=== PATIENT | female | born 1945 | race Caucasian/White ===

== ENCOUNTER 2019-03-30 07:02 | Day surgery (SDC) | payer MEDICARE ==
[~2019-03-30] VITALS: Ht 154.9 cm; Wt 87.1 kg
[2019-03-30] MEDS ORDERED: IODIXANOL 320MG/ML 100 ML BOTTLE IV ONE (07:34)
[2019-03-30] MEDS ORDERED: LIDOCAINE HCL 1% 20ML VIAL (Pyxis) INJ ONE (07:34)
[2019-03-30] MEDS ORDERED: DIPHENHYDRAMINE 50MG/ML VIAL ONE (08:01)
[2019-03-30] MEDS ORDERED: ASPIRIN/SOD BICARB/CITRIC ACID 324MG TAB EFF ONE (08:02)
[2019-03-30] MEDS ORDERED: FAMOTIDINE 20MG/2ML VIAL IV ONE (08:02)
[2019-03-30] MEDS ORDERED: HYDROCORTISONE SOD SUCCINATE 250 MG/2 ML VIAL ONE (08:02)
[2019-03-30] MEDS ORDERED: POTA10TA11 MT (08:18)
[2019-03-30] MEDS ORDERED: SYN150 MT (08:18)
[2019-03-30] MEDS ORDERED: GLIM2TAB2 MT (08:18)
[2019-03-30] MEDS ORDERED: HYDR12.54 MT (08:18)
[2019-03-30] MEDS ORDERED: ASPI-1158 MT (08:18)
[2019-03-30] MEDS ORDERED: TOPXL5 MT (08:18)
[2019-03-30] MEDS ORDERED: ISOS60TA4 MT (08:18)
[2019-03-30] MEDS ORDERED: INSLIS SUBCUT (08:18)
[2019-03-30] MEDS ORDERED: PRAV40TA58 MT (08:18)
[2019-03-30] MEDS ORDERED: FERR325T6 MT (08:18)
[2019-03-30] MEDS ORDERED: LEVVL SQ (08:18)
[2019-03-30] MEDS ORDERED: MICAR4 MT (08:18)
[2019-03-30] MEDS ORDERED: CLON0.1T MT (08:18)
[2019-03-30] MEDS ORDERED: MIDAZOLAM HCL 2 MG/2 ML VIAL ONE (08:28)
[2019-03-30] MEDS ORDERED: FENTANYL CITRATE/PF 50MCG/ML 2ML VIAL ONE (08:29)
[2019-03-30] MEDS ORDERED: HYDRALAZINE 20MG/ML VIAL ONE (08:39)
[2019-03-30] MEDS ORDERED: NITROGLYCERIN 0.4MG TABLET SL SL ONE (08:40)
[2019-03-30] MEDS ORDERED: ACETAMINOPHEN 325MG TABLET PO PRN (09:30)
[2019-03-30] MEDS ORDERED: MORPHINE SULFATE 4 MG/ML CPJ (NOT FOR IM USE) IV PRN (09:30)
[2019-03-30] MEDS ORDERED: ATROPINE SULFATE 1MG/10ML SYR IV PRN (09:30)
[2019-03-30] MEDS ORDERED: ONDANSETRON HCL 4MG/2ML INJ IV PRN (09:30)
[2019-03-30] MEDS ORDERED: INSULIN REGULAR (HUMULIN R) 300UNITS/3ML SUBCUT NR (12:00)
[2019-03-30] MEDS ORDERED: NICARDIPINE 100MCG/ML 10ML VIAL (CATH LAB) IV ONE (13:33)
[2019-03-30] MEDS ORDERED: HEPARIN SODIUM 1,000 UNIT/1ML VIAL IV ONE (13:33)
[2019-03-30] MEDS ORDERED: NITROGLYCERIN 50MCG/ML 10ML VIAL (CATH LAB) IV ONE (13:33)
[2019-04-07] MEDS ORDERED: ASPI-1159 PO (15:05)
== END 2019-03-30 13:30 | disposition home or self-care (01) ==
LOC: CCL 07:02 → EDBD 07:02 → CCL 13:30
PROVIDERS: ATTEND Specialist
DX: I25.10 Atherosclerotic heart disease of native coronary artery without angina pectoris (principal); G47.33 Obstructive sleep apnea (adult) (pediatric); I10 Essential (primary) hypertension; E66.9 Obesity, unspecified; D50.9 Iron deficiency anemia, unspecified; E03.9 Hypothyroidism, unspecified; I73.9 Peripheral vascular disease, unspecified; E78.00 Pure hypercholesterolemia, unspecified; I25.2 Old myocardial infarction; Z79.4 Long term (current) use of insulin; Z79.899 Other long term (current) drug therapy; Z88.0 Allergy status to penicillin; Z88.8 Allergy status to other drugs, medicaments and biological substances; I65.29 Occlusion and stenosis of unspecified carotid artery; Z91.041 Radiographic dye allergy status; Z95.1 Presence of aortocoronary bypass graft; Z95.5 Presence of coronary angioplasty implant and graft
CPT/HCPCS: 82962; 93005; 93459; 99152; 99153; C1769; C1887; C1893; J0360; J1200; J1644; J1720; J2250; J3010; J3490; Q9967; J1815; G0500

== ENCOUNTER 2023-05-13 19:10 | Inpatient (IN) | payer MEDICARE ==
[~2023-05-13] VITALS: Ht 162.6 cm; Wt 74.8 kg
[~2023-05-13 19:10] MED LIST: ASPI-1497 PO; CLON0.1T MT; CLOP-31 MT; GLIM2TAB30 MT; HYDR12.54 MT; INSLIS SUBCUT; ISOS60TA76 MT; LEVVL SQ; MICAR4 MT; PARO-150 MT; PITA4TAB2 MT; POTA-185 MT; PRAV40TA58 MT; SYN150 MT; TOPXL5 MT
[2023-05-13 20:00] VITALS: BP 121/52; PULSE 79; RESP 17; TEMP 97.4
[2023-05-13] MEDS ORDERED: CLONIDINE 0.1MG TABLET PO PRN (20:30)
[2023-05-13] MEDS ORDERED: DEXTROSE 50% WATER 50ML SYRINGE IV PRN ×3 (20:30)
[2023-05-13 20:50] VITALS: BP 121/52; PULSE 79; RESP 17; TEMP 97.4
[2023-05-13] MEDS ORDERED: BLOOD SUGAR DIAGNOSTIC STRIP TEST SCH ×2 (21:00)
[2023-05-13] MEDS ORDERED: ALPR-340 PO (21:05)
[2023-05-13] MEDS ORDERED: TOLT4CAP27 PO (21:05)
[2023-05-13] MEDS ORDERED: LEVO137T32 PO (21:06)
[2023-05-13] MEDS ORDERED: METH1TAB33 PO (21:07)
[2023-05-13] MEDS ORDERED: TELM80TA8 PO (21:08)
[2023-05-13] MEDS ORDERED: PARO40TA75 PO (21:08)
[2023-05-13] MEDS ORDERED: PANT40SU PO (21:10)
[2023-05-13] MEDS ORDERED: ISOS120T13 PO (21:12)
[2023-05-13] MEDS ORDERED: BLOO-1065 HHN (21:31)
[2023-05-13] MEDS: BLOOD SUGAR DIAGNOSTIC STRIP TEST SCH (21:44)
[2023-05-13] MEDS ORDERED: INSU100I28 SQ ×2 (21:55)
[2023-05-13] MEDS ORDERED: INSU100I13 SQ (21:56)
[2023-05-13] MEDS: LEVETIRACETAM 250MG TABLET PO SCH (21:58)
[2023-05-13] MEDS: ATORVASTATIN CALCIUM 40MG TABLET PO SCH (21:58)
[2023-05-13] MEDS: INSULIN LISPRO 100 UNITS/ML SUBCUT SCH (21:59)
[2023-05-13 23:40] VITALS: RESP 19
[2023-05-14 06:12] LABS: BASOPHILS % 0.6 % (0.0-2.0); EOSINOPHILS % 3.4 % (0.0-5.0); HEMATOCRIT. 35.5 % (36.0-48.0); HEMOGLOBIN. 11.6 g/dL (12.0-16.0); LYMPHOCYTES % 20.6 % (20.0-50.0); MEAN CORPUSCULAR VOLUME 82.9 fL (81.0-99.0); MEAN PLATELET VOLUME 8.1 fl (7.4-10.4); MONOCYTES % 8.8 % (2.0-8.0); NEUTROPHILS % 66.6 % (40.0-76.0); PLATELET 290 x1000/uL (130-400); RED BLOOD CELL COUNT 4.29 mill/uL (4.2-5.4)
[2023-05-14] MEDS: BLOOD SUGAR DIAGNOSTIC STRIP TEST SCH ×4 (06:27→21:12)
[2023-05-14] MEDS: PANTOPRAZOLE 40MG DR TABLET PO SCH (06:28)
[2023-05-14] MEDS: LEVOTHYROXINE SODIUM 137MCG TABLET PO SCH (06:28)
[2023-05-14] MEDS: INSULIN LISPRO 100 UNITS/ML SUBCUT SCH ×7 (06:46→21:36)
[2023-05-14 06:56] LABS: CHLORIDE 101 mEq/L (98-107)
[2023-05-14 08:00] VITALS: BP 141/64; PULSE 71; RESP 18; TEMP 97.7
[2023-05-14 08:06] LABS: CLARITY URINE CLEAR (CLEAR); COLOR URINE YELLOW (YELLOW); KETONES URINE NEGATIVE (NEGATIVE); LEUKOCYTE ESTERASE URINE 1+ (NEGATIVE); NITRITE URINE NEGATIVE (NEGATIVE); OCCULT BLOOD URINE NEGATIVE (NEGATIVE); PH URINE 5.5 (4.5-8.0); PROTEIN URINE 1+ (NEGATIVE); SPECIFIC GRAVITY URINE 1.009 (1.005-1.030); UROBILINOGEN URINE 0.2 E.U./dL (0.2-1.0)
[2023-05-14] MEDS: METOPROLOL SUCCINATE 50MG ER TABLET PO SCH (09:30)
[2023-05-14] MEDS: AMLODIPINE 10MG TABLET PO SCH (09:30)
[2023-05-14] MEDS: ISOSORBIDE MONONITRATE 60MG TABLET SR 24HR PO SCH (09:30)
[2023-05-14] MEDS: LEVETIRACETAM 250MG TABLET PO SCH ×2 (09:32→21:14)
[2023-05-14] MEDS: DOCUSATE SODIUM 100MG CAPSULE PO SCH ×2 (09:33→17:02)
[2023-05-14] MEDS: SENNOSIDES 8.6MG TABLET PO SCH (09:33)
[2023-05-14] MEDS: CLOPIDOGREL 75MG TABLET PO SCH (09:33)
[2023-05-14] MEDS: PAROXETINE HCL 10MG TABLET PO SCH (09:33)
[2023-05-14] MEDS: CHOLECALCIFEROL (D3) 1000 UNIT TABLET PO SCH (09:35)
[2023-05-14] MEDS: ASPIRIN 81MG EC TABLET PO SCH (09:35)
[2023-05-14] MEDS: HEPARIN 5000 UNITS/ML VIAL SUBCUT SCH ×2 (09:46→21:14)
[2023-05-14] MEDS: INSULIN GLARGINE 100 UNITS/ML SUBCUT SCH (09:51)
[2023-05-14] MEDS ORDERED: INSULIN GLARGINE 100 UNITS/ML SUBCUT SCH (10:00)
[2023-05-14] MEDS: ACETAMINOPHEN 325MG TABLET PO PRN (14:34)
[2023-05-14 20:00] VITALS: BP 133/66; PULSE 68; RESP 18; TEMP 97.3
[2023-05-14] MEDS: ATORVASTATIN CALCIUM 40MG TABLET PO SCH (21:14)
[2023-05-15] MEDS: PANTOPRAZOLE 40MG DR TABLET PO SCH (06:13)
[2023-05-15] MEDS: BLOOD SUGAR DIAGNOSTIC STRIP TEST SCH ×4 (06:13→21:10)
[2023-05-15] MEDS: LEVOTHYROXINE SODIUM 137MCG TABLET PO SCH (06:16)
[2023-05-15] MEDS: INSULIN LISPRO 100 UNITS/ML SUBCUT SCH ×7 (06:20→21:10)
[2023-05-15 06:59] LABS: CHLORIDE 102 mEq/L (98-107)
[2023-05-15 07:02] LABS: BASOPHILS % 0.6 % (0.0-2.0); EOSINOPHILS % 3.1 % (0.0-5.0); HEMATOCRIT. 36.2 % (36.0-48.0); LYMPHOCYTES % 21.5 % (20.0-50.0); MEAN CORPUSCULAR HEMOGLOBIN 27.4 pg (28.0-32.0); MEAN CORPUSCULAR VOLUME 82.5 fL (81.0-99.0); MEAN PLATELET VOLUME 7.9 fl (7.4-10.4); MONOCYTES % 8.2 % (2.0-8.0); NEUTROPHILS % 66.6 % (40.0-76.0); PLATELET 302 x1000/uL (130-400); RED BLOOD CELL COUNT 4.39 mill/uL (4.2-5.4); RED CELL DISTRIBUTION WIDTH 18.6 % (11.6-14.6)
[2023-05-15 07:19] LABS: TOTAL IRON BINDING CAPACITY 255 ug/dL (250-450)
[2023-05-15 07:52] LABS: VITAMIN B12 SERUM 919 pg/mL (211-911)
[2023-05-15 08:00] VITALS: BP 161/66; PULSE 69; RESP 18; TEMP 97.2
[2023-05-15 08:22] LABS: FERRITIN 50 ng/mL (10-291)
[2023-05-15] MEDS: CHOLECALCIFEROL (D3) 1000 UNIT TABLET PO SCH (09:00)
[2023-05-15] MEDS: LEVETIRACETAM 250MG TABLET PO SCH ×2 (10:01→20:51)
[2023-05-15] MEDS: CLOPIDOGREL 75MG TABLET PO SCH (10:02)
[2023-05-15] MEDS: ISOSORBIDE MONONITRATE 60MG TABLET SR 24HR PO SCH (10:02)
[2023-05-15] MEDS: SENNOSIDES 8.6MG TABLET PO SCH (10:02)
[2023-05-15] MEDS: PAROXETINE HCL 10MG TABLET PO SCH (10:02)
[2023-05-15] MEDS: DOCUSATE SODIUM 100MG CAPSULE PO SCH ×2 (10:02→17:00)
[2023-05-15] MEDS: AMLODIPINE 10MG TABLET PO SCH (10:03)
[2023-05-15] MEDS: ASPIRIN 81MG EC TABLET PO SCH (10:03)
[2023-05-15] MEDS: METOPROLOL SUCCINATE 50MG ER TABLET PO SCH (10:03)
[2023-05-15] MEDS: HEPARIN 5000 UNITS/ML VIAL SUBCUT SCH ×2 (10:05→20:52)
[2023-05-15] MEDS: INSULIN GLARGINE 100 UNITS/ML SUBCUT SCH (10:06)
[2023-05-15] MEDS: FERROUS SULFATE 325MG TABLET PO SCH ×2 (13:33→18:15)
[2023-05-15 20:00] VITALS: BP 131/63; PULSE 71; RESP 18; TEMP 97.3
[2023-05-15] MEDS: ATORVASTATIN CALCIUM 40MG TABLET PO SCH (20:51)
[2023-05-16] MEDS ORDERED: INSULIN LISPRO 100 UNITS/ML SUBCUT SCH (07:00)
[2023-05-16] MEDS: BLOOD SUGAR DIAGNOSTIC STRIP TEST SCH ×4 (07:08→21:56)
[2023-05-16] MEDS: LEVOTHYROXINE SODIUM 137MCG TABLET PO SCH (07:09)
[2023-05-16 08:00] VITALS: BP 156/64; PULSE 89; RESP 20; TEMP 98.6
[2023-05-16] MEDS: INSULIN LISPRO 100 UNITS/ML SUBCUT SCH ×7 (08:08→22:13)
[2023-05-16] MEDS: HEPARIN 5000 UNITS/ML VIAL SUBCUT SCH ×2 (09:13→21:56)
[2023-05-16] MEDS: PAROXETINE HCL 10MG TABLET PO SCH (09:14)
[2023-05-16] MEDS: CLOPIDOGREL 75MG TABLET PO SCH (09:14)
[2023-05-16] MEDS: FAMOTIDINE 20MG TABLET PO SCH (09:15)
[2023-05-16] MEDS: ISOSORBIDE MONONITRATE 60MG TABLET SR 24HR PO SCH (09:15)
[2023-05-16] MEDS: ASPIRIN 81MG EC TABLET PO SCH (09:15)
[2023-05-16] MEDS: AMLODIPINE 10MG TABLET PO SCH (09:15)
[2023-05-16] MEDS: LEVETIRACETAM 250MG TABLET PO SCH ×2 (09:15→21:56)
[2023-05-16] MEDS: CHOLECALCIFEROL (D3) 1000 UNIT TABLET PO SCH (09:16)
[2023-05-16] MEDS: FERROUS SULFATE 325MG TABLET PO SCH ×3 (09:16→16:42)
[2023-05-16] MEDS: ASCORBIC ACID 500 MG TABLET PO SCH (09:16)
[2023-05-16] MEDS: DOCUSATE SODIUM 100MG CAPSULE PO SCH ×2 (09:16→16:42)
[2023-05-16] MEDS: METOPROLOL SUCCINATE 50MG ER TABLET PO SCH (09:16)
[2023-05-16] MEDS: SENNOSIDES 8.6MG TABLET PO SCH (09:16)
[2023-05-16] MEDS ORDERED: FOSFOMYCIN 3 GM PO NR (10:00)
[2023-05-16] MEDS ORDERED: INSULIN GLARGINE 100 UNITS/ML SUBCUT SCH (10:00)
[2023-05-16] MEDS: FLUCONAZOLE 100MG TABLET PO SCH (12:38)
[2023-05-16] MEDS ORDERED: ERGOCALCIFEROL 50000UNITS CAPSULE PO SCH (16:45)
[2023-05-16] MEDS: LINAGLIPTIN 5MG TABLET PO SCH (19:45)
[2023-05-16 20:06] VITALS: BP 135/60; PULSE 67; RESP 20; TEMP 97.1
[2023-05-16 21:12] LABS: T4 FREE 1.18 ng/dL (0.76-1.46)
[2023-05-16] MEDS: ATORVASTATIN CALCIUM 40MG TABLET PO SCH (21:55)
[2023-05-17 00:38] VITALS: RESP 22
[2023-05-17 04:24] VITALS: RESP 16
[2023-05-17] MEDS: LEVOTHYROXINE SODIUM 137MCG TABLET PO SCH (06:26)
[2023-05-17] MEDS: BLOOD SUGAR DIAGNOSTIC STRIP TEST SCH ×4 (06:26→21:00)
[2023-05-17 06:28] LABS: BASOPHILS % 0.7 % (0.0-2.0); EOSINOPHILS % 2.9 % (0.0-5.0); HEMATOCRIT. 39.2 % (36.0-48.0); HEMOGLOBIN. 12.7 g/dL (12.0-16.0); LYMPHOCYTES % 22.5 % (20.0-50.0); MEAN CORPUSCULAR HEMOGLOBIN 27.2 pg (28.0-32.0); MEAN CORPUSCULAR VOLUME 83.8 fL (81.0-99.0); MEAN PLATELET VOLUME 8.2 fl (7.4-10.4); MONOCYTES % 9.4 % (2.0-8.0); NEUTROPHILS % 64.5 % (40.0-76.0); PLATELET 303 x1000/uL (130-400); RED BLOOD CELL COUNT 4.67 mill/uL (4.2-5.4); RED CELL DISTRIBUTION WIDTH 18.4 % (11.6-14.6)
[2023-05-17] MEDS: INSULIN LISPRO 100 UNITS/ML SUBCUT SCH ×6 (07:00→21:00)
[2023-05-17 08:00] VITALS: BP 170/81; PULSE 76; RESP 17; TEMP 97.9
[2023-05-17] MEDS: FERROUS SULFATE 325MG TABLET PO SCH ×3 (09:00→18:02)
[2023-05-17] MEDS: INSULIN GLARGINE 100 UNITS/ML SUBCUT SCH (10:00)
[2023-05-17] MEDS: LEVETIRACETAM 250MG TABLET PO SCH ×2 (10:18→22:21)
[2023-05-17] MEDS: CHOLECALCIFEROL (D3) 1000 UNIT TABLET PO SCH (10:18)
[2023-05-17] MEDS: FLUCONAZOLE 100MG TABLET PO SCH (10:18)
[2023-05-17] MEDS: DOCUSATE SODIUM 100MG CAPSULE PO SCH ×2 (10:18→17:00)
[2023-05-17] MEDS: ISOSORBIDE MONONITRATE 60MG TABLET SR 24HR PO SCH (10:19)
[2023-05-17] MEDS: FAMOTIDINE 20MG TABLET PO SCH (10:19)
[2023-05-17] MEDS: AMLODIPINE 10MG TABLET PO SCH (10:19)
[2023-05-17] MEDS: LINAGLIPTIN 5MG TABLET PO SCH (10:20)
[2023-05-17] MEDS: SENNOSIDES 8.6MG TABLET PO SCH (10:20)
[2023-05-17] MEDS: PAROXETINE HCL 10MG TABLET PO SCH (10:20)
[2023-05-17] MEDS: ASCORBIC ACID 500 MG TABLET PO SCH (10:20)
[2023-05-17] MEDS: ACETAMINOPHEN 325MG TABLET PO PRN (10:21)
[2023-05-17] MEDS: CLOPIDOGREL 75MG TABLET PO SCH (10:21)
[2023-05-17] MEDS: METOPROLOL SUCCINATE 50MG ER TABLET PO SCH (10:21)
[2023-05-17] MEDS: ASPIRIN 81MG EC TABLET PO SCH (10:21)
[2023-05-17] MEDS: HEPARIN 5000 UNITS/ML VIAL SUBCUT SCH ×2 (10:32→22:22)
[2023-05-17] MEDS ORDERED: INSULIN LISPRO 100 UNITS/ML SUBCUT STA (13:09)
[2023-05-17] MEDS ORDERED: INSULIN LISPRO 100 UNITS/ML SUBCUT SCH (14:00)
[2023-05-17 20:00] VITALS: BP 112/59; PULSE 69; RESP 18; TEMP 97.2
[2023-05-17] MEDS: ATORVASTATIN CALCIUM 40MG TABLET PO SCH (22:21)
[2023-05-17 23:35] VITALS: RESP 17
[2023-05-18] MEDS: BLOOD SUGAR DIAGNOSTIC STRIP TEST SCH ×4 (06:30→21:00)
[2023-05-18 07:18] LABS: BASOPHILS % 0.7 % (0.0-2.0); EOSINOPHILS % 2.9 % (0.0-5.0); HEMATOCRIT. 35.9 % (36.0-48.0); HEMOGLOBIN. 11.9 g/dL (12.0-16.0); LYMPHOCYTES % 23.1 % (20.0-50.0); MEAN CORPUSCULAR HEMOGLOBIN 27.5 pg (28.0-32.0); MEAN CORPUSCULAR VOLUME 82.9 fL (81.0-99.0); MEAN PLATELET VOLUME 8.4 fl (7.4-10.4); MONOCYTES % 10.1 % (2.0-8.0); NEUTROPHILS % 63.2 % (40.0-76.0); PLATELET 285 x1000/uL (130-400); RED BLOOD CELL COUNT 4.34 mill/uL (4.2-5.4); RED CELL DISTRIBUTION WIDTH 18.7 % (11.6-14.6)
[2023-05-18] MEDS: LEVOTHYROXINE SODIUM 137MCG TABLET PO SCH (07:23)
[2023-05-18] MEDS: INSULIN LISPRO 100 UNITS/ML SUBCUT SCH ×7 (07:28→20:17)
[2023-05-18 08:23] VITALS: BP 136/79; PULSE 87; RESP 20; TEMP 98.1
[2023-05-18] MEDS: CLOPIDOGREL 75MG TABLET PO SCH (08:57)
[2023-05-18] MEDS: PAROXETINE HCL 10MG TABLET PO SCH (08:57)
[2023-05-18] MEDS: LINAGLIPTIN 5MG TABLET PO SCH (08:57)
[2023-05-18] MEDS: LEVETIRACETAM 250MG TABLET PO SCH ×2 (08:57→20:06)
[2023-05-18] MEDS: ISOSORBIDE MONONITRATE 60MG TABLET SR 24HR PO SCH (08:57)
[2023-05-18] MEDS: SENNOSIDES 8.6MG TABLET PO SCH (08:57)
[2023-05-18] MEDS: CHOLECALCIFEROL (D3) 1000 UNIT TABLET PO SCH (08:57)
[2023-05-18] MEDS: FERROUS SULFATE 325MG TABLET PO SCH ×3 (08:57→18:10)
[2023-05-18] MEDS: FAMOTIDINE 20MG TABLET PO SCH (08:57)
[2023-05-18] MEDS: METOPROLOL SUCCINATE 50MG ER TABLET PO SCH (08:58)
[2023-05-18] MEDS: AMLODIPINE 10MG TABLET PO SCH (08:58)
[2023-05-18] MEDS: ASPIRIN 81MG EC TABLET PO SCH (08:58)
[2023-05-18] MEDS: FLUCONAZOLE 100MG TABLET PO SCH (08:58)
[2023-05-18] MEDS: ASCORBIC ACID 500 MG TABLET PO SCH (08:59)
[2023-05-18] MEDS: HEPARIN 5000 UNITS/ML VIAL SUBCUT SCH ×2 (08:59→20:06)
[2023-05-18] MEDS: DOCUSATE SODIUM 100MG CAPSULE PO SCH ×2 (08:59→17:00)
[2023-05-18] MEDS: INSULIN GLARGINE 100 UNITS/ML SUBCUT SCH (09:15)
[2023-05-18] MEDS: ERGOCALCIFEROL 50000UNITS CAPSULE PO SCH (18:11)
[2023-05-18 20:00] VITALS: BP 115/62; PULSE 78; RESP 19; TEMP 97.7
[2023-05-18] MEDS: ATORVASTATIN CALCIUM 40MG TABLET PO SCH (20:05)
[2023-05-18 23:20] VITALS: RESP 20
[2023-05-19] MEDS: ACETAMINOPHEN 325MG TABLET PO PRN ×2 (03:01→08:16)
[2023-05-19 06:13] LABS: BASOPHILS % 0.5 % (0.0-2.0); EOSINOPHILS % 1.3 % (0.0-5.0); HEMATOCRIT. 34.6 % (36.0-48.0); HEMOGLOBIN. 11.7 g/dL (12.0-16.0); LYMPHOCYTES % 14.5 % (20.0-50.0); MEAN CORPUSCULAR HEMOGLOBIN 28.1 pg (28.0-32.0); MEAN CORPUSCULAR VOLUME 83.2 fL (81.0-99.0); MEAN PLATELET VOLUME 8.3 fl (7.4-10.4); MONOCYTES % 8.6 % (2.0-8.0); NEUTROPHILS % 75.1 % (40.0-76.0); PLATELET 269 x1000/uL (130-400); RED BLOOD CELL COUNT 4.16 mill/uL (4.2-5.4); RED CELL DISTRIBUTION WIDTH 18.2 % (11.6-14.6)
[2023-05-19] MEDS: BLOOD SUGAR DIAGNOSTIC STRIP TEST SCH ×3 (06:30→21:42)
[2023-05-19] MEDS: LEVOTHYROXINE SODIUM 137MCG TABLET PO SCH (07:00)
[2023-05-19] MEDS: INSULIN LISPRO 100 UNITS/ML SUBCUT SCH ×7 (08:16→22:08)
[2023-05-19] MEDS: HEPARIN 5000 UNITS/ML VIAL SUBCUT SCH ×2 (09:00→21:44)
[2023-05-19] MEDS: DOCUSATE SODIUM 100MG CAPSULE PO SCH ×2 (09:00→16:23)
[2023-05-19] MEDS: FLUCONAZOLE 100MG TABLET PO SCH (10:00)
[2023-05-19] MEDS: LINAGLIPTIN 5MG TABLET PO SCH (10:01)
[2023-05-19] MEDS: FERROUS SULFATE 325MG TABLET PO SCH ×2 (10:02→16:23)
[2023-05-19] MEDS: ASPIRIN 81MG EC TABLET PO SCH (10:02)
[2023-05-19] MEDS: ASCORBIC ACID 500 MG TABLET PO SCH (10:04)
[2023-05-19] MEDS: SENNOSIDES 8.6MG TABLET PO SCH (10:05)
[2023-05-19] MEDS: PAROXETINE HCL 10MG TABLET PO SCH (10:06)
[2023-05-19] MEDS: CLOPIDOGREL 75MG TABLET PO SCH (10:11)
[2023-05-19] MEDS: FAMOTIDINE 20MG TABLET PO SCH (10:12)
[2023-05-19] MEDS: LEVETIRACETAM 250MG TABLET PO SCH ×2 (10:12→21:44)
[2023-05-19] MEDS: METOPROLOL SUCCINATE 50MG ER TABLET PO SCH (11:24)
[2023-05-19] MEDS: AMLODIPINE 10MG TABLET PO SCH (11:25)
[2023-05-19] MEDS: ISOSORBIDE MONONITRATE 60MG TABLET SR 24HR PO SCH (11:25)
[2023-05-19] MEDS: INSULIN GLARGINE 100 UNITS/ML SUBCUT SCH ×2 (11:46→22:04)
[2023-05-19 19:53] VITALS: BP 141/46; PULSE 81; RESP 17; TEMP 96.9
[2023-05-19 21:40] VITALS: RESP 23
[2023-05-19] MEDS: ATORVASTATIN CALCIUM 40MG TABLET PO SCH (21:43)
[2023-05-20] MEDS: BLOOD SUGAR DIAGNOSTIC STRIP TEST SCH ×4 (06:35→22:43)
[2023-05-20] MEDS: LEVOTHYROXINE SODIUM 137MCG TABLET PO SCH (06:41)
[2023-05-20] MEDS: INSULIN LISPRO 100 UNITS/ML SUBCUT SCH ×5 (06:49→23:04)
[2023-05-20 07:02] LABS: BASOPHILS % 0.5 % (0.0-2.0); EOSINOPHILS % 1.8 % (0.0-5.0); HEMATOCRIT. 35.2 % (36.0-48.0); HEMOGLOBIN. 11.8 g/dL (12.0-16.0); LYMPHOCYTES % 18.8 % (20.0-50.0); MEAN CORPUSCULAR HEMOGLOBIN 27.6 pg (28.0-32.0); MEAN CORPUSCULAR VOLUME 82.4 fL (81.0-99.0); MEAN PLATELET VOLUME 8.4 fl (7.4-10.4); MONOCYTES % 10.8 % (2.0-8.0); NEUTROPHILS % 68.1 % (40.0-76.0); PLATELET 279 x1000/uL (130-400); RED BLOOD CELL COUNT 4.27 mill/uL (4.2-5.4); RED CELL DISTRIBUTION WIDTH 18.5 % (11.6-14.6)
[2023-05-20 08:00] VITALS: BP 162/60; PULSE 86; RESP 17; TEMP 97.8
[2023-05-20] MEDS: FLUCONAZOLE 100MG TABLET PO SCH (09:15)
[2023-05-20] MEDS: ISOSORBIDE MONONITRATE 60MG TABLET SR 24HR PO SCH (09:16)
[2023-05-20] MEDS: FAMOTIDINE 20MG TABLET PO SCH (09:17)
[2023-05-20] MEDS: METOPROLOL SUCCINATE 50MG ER TABLET PO SCH (09:17)
[2023-05-20] MEDS: AMLODIPINE 10MG TABLET PO SCH (09:17)
[2023-05-20] MEDS: DOCUSATE SODIUM 100MG CAPSULE PO SCH ×2 (09:18→17:00)
[2023-05-20] MEDS: SENNOSIDES 8.6MG TABLET PO SCH (09:18)
[2023-05-20] MEDS: PAROXETINE HCL 10MG TABLET PO SCH (09:18)
[2023-05-20] MEDS: FERROUS SULFATE 325MG TABLET PO SCH ×3 (09:18→17:00)
[2023-05-20] MEDS: LINAGLIPTIN 5MG TABLET PO SCH (09:18)
[2023-05-20] MEDS: CLOPIDOGREL 75MG TABLET PO SCH (09:18)
[2023-05-20] MEDS: ASPIRIN 81MG EC TABLET PO SCH (09:19)
[2023-05-20] MEDS: ASCORBIC ACID 500 MG TABLET PO SCH (09:19)
[2023-05-20] MEDS: LEVETIRACETAM 250MG TABLET PO SCH ×2 (09:19→22:43)
[2023-05-20] MEDS: HEPARIN 5000 UNITS/ML VIAL SUBCUT SCH ×2 (09:20→22:43)
[2023-05-20] MEDS: INSULIN GLARGINE 100 UNITS/ML SUBCUT SCH ×2 (10:22→23:05)
[2023-05-20 10:59] VITALS: BP 162/60; PULSE 86; RESP 17; TEMP 97.8
[2023-05-20] MEDS ORDERED: CLONIDINE 0.1MG TABLET PO NR (12:30)
[2023-05-20 15:39] LABS: BG BASE EXCESS 4.4 mmol/L (-2.0-2.0); BG CARBOXYHEMOGLOBIN 0.3 % (0.5-1.5); BG DEOXYHEMOGLOBIN 3.5 % (0.0-5.0); BG FRACTION INSPIRED OXYGEN 30; BG HCO3 ACT 29.9 mmol/L (22.0-26.0); BG METHEMOGLOBIN 0.3 % (0.0-1.5); BG OXYGEN SATURATION 96.5 % (92.0-98.5); BG OXYHEMOGLOBIN 95.9 % (94.0-97.0); BG PCO2 48.4 mmHg (35.0-45.0); BG PH 7.408 (7.350-7.450); BG PO2 89.3 mmHg (75.0-100.0); BG SAMPLE SITE RIGHT RADIAL; BG VENT MODE NASAL CANNULA
[2023-05-20 16:26] LABS: BASOPHILS % 0.5 % (0.0-2.0); EOSINOPHILS % 1.5 % (0.0-5.0); HEMATOCRIT. 34.4 % (36.0-48.0); HEMOGLOBIN. 11.5 g/dL (12.0-16.0); LYMPHOCYTES % 19.1 % (20.0-50.0); MEAN CORPUSCULAR VOLUME 83.8 fL (81.0-99.0); MEAN PLATELET VOLUME 8.3 fl (7.4-10.4); MONOCYTES % 10.7 % (2.0-8.0); NEUTROPHILS % 68.2 % (40.0-76.0); PLATELET 273 x1000/uL (130-400); RED BLOOD CELL COUNT 4.11 mill/uL (4.2-5.4); RED CELL DISTRIBUTION WIDTH 19.2 % (11.6-14.6)
[2023-05-20 16:40] LABS: CHLORIDE 100 mEq/L (98-107)
[2023-05-20 20:01] VITALS: BP 146/72; PULSE 79; RESP 17; TEMP 98.1
[2023-05-20] MEDS: ATORVASTATIN CALCIUM 40MG TABLET PO SCH (22:43)
[2023-05-21] MEDS: BLOOD SUGAR DIAGNOSTIC STRIP TEST SCH ×4 (06:56→21:16)
[2023-05-21] MEDS: LEVOTHYROXINE SODIUM 150MCG TABLET PO SCH (07:04)
[2023-05-21 08:00] VITALS: BP 151/84; PULSE 92; RESP 20; TEMP 98.4
[2023-05-21] MEDS: INSULIN LISPRO 100 UNITS/ML SUBCUT SCH ×8 (08:59→21:27)
[2023-05-21] MEDS: ASPIRIN 81MG EC TABLET PO SCH (11:17)
[2023-05-21] MEDS: HEPARIN 5000 UNITS/ML VIAL SUBCUT SCH ×2 (11:17→21:16)
[2023-05-21] MEDS: LEVETIRACETAM 250MG TABLET PO SCH ×2 (11:18→21:13)
[2023-05-21] MEDS: ASCORBIC ACID 500 MG TABLET PO SCH (11:18)
[2023-05-21] MEDS: FERROUS SULFATE 325MG TABLET PO SCH ×3 (11:18→17:08)
[2023-05-21] MEDS: PAROXETINE HCL 10MG TABLET PO SCH (11:18)
[2023-05-21] MEDS: SENNOSIDES 8.6MG TABLET PO SCH (11:19)
[2023-05-21] MEDS: CLOPIDOGREL 75MG TABLET PO SCH (11:19)
[2023-05-21] MEDS: AMLODIPINE 10MG TABLET PO SCH (11:19)
[2023-05-21] MEDS: ISOSORBIDE MONONITRATE 60MG TABLET SR 24HR PO SCH (11:20)
[2023-05-21] MEDS: METOPROLOL SUCCINATE 50MG ER TABLET PO SCH (11:20)
[2023-05-21] MEDS: FLUCONAZOLE 100MG TABLET PO SCH (11:20)
[2023-05-21] MEDS: LINAGLIPTIN 5MG TABLET PO SCH (11:20)
[2023-05-21] MEDS: DOCUSATE SODIUM 100MG CAPSULE PO SCH ×2 (11:20→17:08)
[2023-05-21] MEDS: INSULIN GLARGINE 100 UNITS/ML SUBCUT SCH ×2 (12:21→21:23)
[2023-05-21] MEDS: LACTULOSE 20G/30ML UDC PO SCH ×2 (17:08→21:28)
[2023-05-21 20:00] VITALS: BP 129/61; PULSE 85; RESP 19; TEMP 97.4
[2023-05-21] MEDS: ATORVASTATIN CALCIUM 40MG TABLET PO SCH (21:16)
[2023-05-22] MEDS: LACTULOSE 20G/30ML UDC PO SCH ×3 (06:00→21:21)
[2023-05-22] MEDS: BLOOD SUGAR DIAGNOSTIC STRIP TEST SCH ×4 (06:06→21:19)
[2023-05-22] MEDS: LEVOTHYROXINE SODIUM 150MCG TABLET PO SCH (06:07)
[2023-05-22 06:13] LABS: BASOPHILS % 0.7 % (0.0-2.0); EOSINOPHILS % 2.3 % (0.0-5.0); HEMATOCRIT. 35.1 % (36.0-48.0); HEMOGLOBIN. 11.6 g/dL (12.0-16.0); LYMPHOCYTES % 22.1 % (20.0-50.0); MEAN CORPUSCULAR HEMOGLOBIN 27.6 pg (28.0-32.0); MEAN CORPUSCULAR VOLUME 83.5 fL (81.0-99.0); MEAN PLATELET VOLUME 8.3 fl (7.4-10.4); MONOCYTES % 13.7 % (2.0-8.0); NEUTROPHILS % 61.2 % (40.0-76.0); PLATELET 269 x1000/uL (130-400); PROTHROMBIN TIME 10.6 sec (9.6-11.0); RED CELL DISTRIBUTION WIDTH 18.8 % (11.6-14.6)
[2023-05-22] MEDS: INSULIN LISPRO 100 UNITS/ML SUBCUT SCH ×5 (06:19→21:18)
[2023-05-22 06:27] LABS: CHLORIDE 102 mEq/L (98-107)
[2023-05-22 08:00] VITALS: BP 156/77; PULSE 90; RESP 18; TEMP 97.6
[2023-05-22] MEDS: ASCORBIC ACID 500 MG TABLET PO SCH (08:58)
[2023-05-22] MEDS: PAROXETINE HCL 10MG TABLET PO SCH (08:58)
[2023-05-22] MEDS: FLUCONAZOLE 100MG TABLET PO SCH (08:58)
[2023-05-22] MEDS: SENNOSIDES 8.6MG TABLET PO SCH (08:58)
[2023-05-22] MEDS: FERROUS SULFATE 325MG TABLET PO SCH ×3 (08:58→17:40)
[2023-05-22] MEDS: DOCUSATE SODIUM 100MG CAPSULE PO SCH ×2 (08:58→17:40)
[2023-05-22] MEDS: ASPIRIN 81MG EC TABLET PO SCH (08:59)
[2023-05-22] MEDS: METOPROLOL SUCCINATE 50MG ER TABLET PO SCH (08:59)
[2023-05-22] MEDS: LINAGLIPTIN 5MG TABLET PO SCH (08:59)
[2023-05-22] MEDS: AMLODIPINE 10MG TABLET PO SCH (09:00)
[2023-05-22] MEDS: LEVETIRACETAM 250MG TABLET PO SCH ×2 (09:00→20:57)
[2023-05-22] MEDS: ISOSORBIDE MONONITRATE 60MG TABLET SR 24HR PO SCH (09:00)
[2023-05-22] MEDS: HEPARIN 5000 UNITS/ML VIAL SUBCUT SCH ×2 (09:01→20:57)
[2023-05-22] MEDS: CLOPIDOGREL 75MG TABLET PO SCH (09:04)
[2023-05-22] MEDS: INSULIN GLARGINE 100 UNITS/ML SUBCUT SCH ×2 (10:00→21:19)
[2023-05-22] MEDS ORDERED: HYDROCODONE/ACETAMINOPHEN 5/325MG TABLET PO PRN (11:15)
[2023-05-22 20:00] VITALS: BP 116/60; PULSE 79; RESP 20; TEMP 98.2
[2023-05-22] MEDS: ATORVASTATIN CALCIUM 40MG TABLET PO SCH (20:57)
[2023-05-22] MEDS: ACETAMINOPHEN 325MG TABLET PO PRN (20:57)
[2023-05-22 23:15] VITALS: RESP 18
[2023-05-23 02:15] VITALS: RESP 20
[2023-05-23] MEDS: LACTULOSE 20G/30ML UDC PO SCH ×3 (06:00→22:18)
[2023-05-23] MEDS: BLOOD SUGAR DIAGNOSTIC STRIP TEST SCH ×4 (06:02→21:00)
[2023-05-23] MEDS: INSULIN LISPRO 100 UNITS/ML SUBCUT SCH ×6 (06:02→17:00)
[2023-05-23] MEDS: LEVOTHYROXINE SODIUM 150MCG TABLET PO SCH (06:02)
[2023-05-23 08:00] VITALS: BP 116/66; PULSE 94; RESP 20; TEMP 97.8
[2023-05-23] MEDS: DOCUSATE SODIUM 100MG CAPSULE PO SCH ×2 (09:09→17:00)
[2023-05-23] MEDS: LEVETIRACETAM 250MG TABLET PO SCH ×2 (09:09→21:34)
[2023-05-23] MEDS: CLOPIDOGREL 75MG TABLET PO SCH (09:09)
[2023-05-23] MEDS: FERROUS SULFATE 325MG TABLET PO SCH ×3 (09:09→17:46)
[2023-05-23] MEDS: ASCORBIC ACID 500 MG TABLET PO SCH (09:10)
[2023-05-23] MEDS: FLUCONAZOLE 100MG TABLET PO SCH ×2 (09:10→15:26)
[2023-05-23] MEDS: LINAGLIPTIN 5MG TABLET PO SCH (09:10)
[2023-05-23] MEDS: SENNOSIDES 8.6MG TABLET PO SCH (09:10)
[2023-05-23] MEDS: PAROXETINE HCL 10MG TABLET PO SCH (09:11)
[2023-05-23] MEDS: ISOSORBIDE MONONITRATE 60MG TABLET SR 24HR PO SCH (09:12)
[2023-05-23] MEDS: AMLODIPINE 10MG TABLET PO SCH (09:12)
[2023-05-23] MEDS: ASPIRIN 81MG EC TABLET PO SCH (09:12)
[2023-05-23] MEDS: METOPROLOL SUCCINATE 50MG ER TABLET PO SCH (09:13)
[2023-05-23] MEDS: HEPARIN 5000 UNITS/ML VIAL SUBCUT SCH ×2 (09:14→21:36)
[2023-05-23] MEDS: INSULIN GLARGINE 100 UNITS/ML SUBCUT SCH ×2 (10:00→22:21)
[2023-05-23] MEDS ORDERED: INSULIN LISPRO 100 UNITS/ML SUBCUT SCH (13:00)
[2023-05-23 20:00] VITALS: BP 115/77; PULSE 91; RESP 18; TEMP 97
[2023-05-23] MEDS: ATORVASTATIN CALCIUM 40MG TABLET PO SCH (21:35)
[2023-05-23 22:10] VITALS: RESP 30
[2023-05-24 02:06] VITALS: RESP 19
[2023-05-24] MEDS: BLOOD SUGAR DIAGNOSTIC STRIP TEST SCH ×4 (06:30→21:00)
[2023-05-24] MEDS: LACTULOSE 20G/30ML UDC PO SCH ×3 (06:53→22:07)
[2023-05-24] MEDS: INSULIN LISPRO 100 UNITS/ML SUBCUT SCH ×4 (07:19→13:54)
[2023-05-24] MEDS: LEVOTHYROXINE SODIUM 150MCG TABLET PO SCH (07:20)
[2023-05-24] MEDS: PAROXETINE HCL 10MG TABLET PO SCH (09:00)
[2023-05-24] MEDS: CLOPIDOGREL 75MG TABLET PO SCH (09:58)
[2023-05-24] MEDS: HEPARIN 5000 UNITS/ML VIAL SUBCUT SCH (09:58)
[2023-05-24] MEDS: ISOSORBIDE MONONITRATE 60MG TABLET SR 24HR PO SCH (09:59)
[2023-05-24] MEDS: ASPIRIN 81MG EC TABLET PO SCH (10:00)
[2023-05-24] MEDS: ASCORBIC ACID 500 MG TABLET PO SCH (10:00)
[2023-05-24] MEDS: LINAGLIPTIN 5MG TABLET PO SCH (10:01)
[2023-05-24] MEDS: FERROUS SULFATE 325MG TABLET PO SCH ×3 (10:01→17:11)
[2023-05-24] MEDS: LEVETIRACETAM 250MG TABLET PO SCH ×2 (10:01→21:34)
[2023-05-24] MEDS: SENNOSIDES 8.6MG TABLET PO SCH (10:02)
[2023-05-24] MEDS: FLUCONAZOLE 100MG TABLET PO SCH (10:02)
[2023-05-24] MEDS: METOPROLOL SUCCINATE 50MG ER TABLET PO SCH (10:04)
[2023-05-24] MEDS: DOCUSATE SODIUM 100MG CAPSULE PO SCH ×2 (10:04→17:00)
[2023-05-24] MEDS: AMLODIPINE 10MG TABLET PO SCH (10:04)
[2023-05-24] MEDS ORDERED: NALOXONE HCL 0.4MG/ML VIAL IV PRN (10:15)
[2023-05-24] MEDS: INSULIN GLARGINE 100 UNITS/ML SUBCUT SCH ×2 (10:34→22:24)
[2023-05-24 20:00] VITALS: BP_SYST 100; BP_SYST 128; BP_DIAS 48; BP_DIAS 66; PULSE 51; PULSE 77; RESP 19; RESP 20; TEMP 97.9
[2023-05-24] MEDS: ATORVASTATIN CALCIUM 40MG TABLET PO SCH (21:32)
[2023-05-24 23:00] VITALS: RESP 20
[2023-05-25 03:00] VITALS: RESP 20
[2023-05-25] MEDS: LACTULOSE 20G/30ML UDC PO SCH ×3 (06:08→22:23)
[2023-05-25] MEDS: BLOOD SUGAR DIAGNOSTIC STRIP TEST SCH ×4 (06:30→21:00)
[2023-05-25] MEDS: LEVOTHYROXINE SODIUM 150MCG TABLET PO SCH (06:45)
[2023-05-25] MEDS: INSULIN LISPRO 100 UNITS/ML SUBCUT SCH ×6 (07:00→18:06)
[2023-05-25 07:18] LABS: BASOPHILS % 0.8 % (0.0-2.0); EOSINOPHILS % 1.9 % (0.0-5.0); HEMATOCRIT. 35.1 % (36.0-48.0); HEMOGLOBIN. 11.7 g/dL (12.0-16.0); LYMPHOCYTES % 22.9 % (20.0-50.0); MEAN CORPUSCULAR HEMOGLOBIN 27.9 pg (28.0-32.0); MEAN CORPUSCULAR VOLUME 83.8 fL (81.0-99.0); MEAN PLATELET VOLUME 8.3 fl (7.4-10.4); MONOCYTES % 12.5 % (2.0-8.0); NEUTROPHILS % 61.9 % (40.0-76.0); PLATELET 249 x1000/uL (130-400); RED BLOOD CELL COUNT 4.18 mill/uL (4.2-5.4)
[2023-05-25 07:19] LABS: CHLORIDE 106 mEq/L (98-107)
[2023-05-25 08:00] VITALS: BP 127/64; PULSE 95; RESP 20; TEMP 96.6
[2023-05-25] MEDS: CLOPIDOGREL 75MG TABLET PO SCH (08:40)
[2023-05-25] MEDS: LEVETIRACETAM 250MG TABLET PO SCH ×2 (08:40→22:23)
[2023-05-25] MEDS: PAROXETINE HCL 10MG TABLET PO SCH (08:42)
[2023-05-25] MEDS: ISOSORBIDE MONONITRATE 60MG TABLET SR 24HR PO SCH (08:42)
[2023-05-25] MEDS: FERROUS SULFATE 325MG TABLET PO SCH ×3 (08:42→17:56)
[2023-05-25] MEDS: ASPIRIN 81MG EC TABLET PO SCH (08:43)
[2023-05-25] MEDS: ASCORBIC ACID 500 MG TABLET PO SCH (08:43)
[2023-05-25] MEDS: FLUCONAZOLE 100MG TABLET PO SCH (08:43)
[2023-05-25] MEDS: DOCUSATE SODIUM 100MG CAPSULE PO SCH ×2 (08:43→17:56)
[2023-05-25] MEDS: METOPROLOL SUCCINATE 50MG ER TABLET PO SCH (08:44)
[2023-05-25] MEDS: SENNOSIDES 8.6MG TABLET PO SCH (08:45)
[2023-05-25] MEDS: LINAGLIPTIN 5MG TABLET PO SCH (08:45)
[2023-05-25] MEDS: AMLODIPINE 10MG TABLET PO SCH (08:45)
[2023-05-25] MEDS: INSULIN GLARGINE 100 UNITS/ML SUBCUT SCH ×2 (11:43→22:31)
[2023-05-25] MEDS: ACETAMINOPHEN 325MG TABLET PO PRN (15:41)
[2023-05-25] MEDS: ERGOCALCIFEROL 50000UNITS CAPSULE PO SCH (17:55)
[2023-05-25 20:00] VITALS: BP 128/61; PULSE 93; RESP 18; TEMP 97
[2023-05-25] MEDS: ATORVASTATIN CALCIUM 40MG TABLET PO SCH (22:23)
[2023-05-25 23:41] VITALS: RESP 18
[2023-05-26 02:04] VITALS: RESP 16
[2023-05-26] MEDS: BLOOD SUGAR DIAGNOSTIC STRIP TEST SCH ×4 (06:19→21:35)
[2023-05-26] MEDS: LEVOTHYROXINE SODIUM 150MCG TABLET PO SCH (06:20)
[2023-05-26] MEDS: LACTULOSE 20G/30ML UDC PO SCH (06:20)
[2023-05-26 06:21] LABS: BASOPHILS % 0.7 % (0.0-2.0); EOSINOPHILS % 2.4 % (0.0-5.0); HEMATOCRIT. 35.4 % (36.0-48.0); HEMOGLOBIN. 11.8 g/dL (12.0-16.0); LYMPHOCYTES % 20.6 % (20.0-50.0); MEAN CORPUSCULAR HEMOGLOBIN 27.8 pg (28.0-32.0); MEAN CORPUSCULAR VOLUME 83.5 fL (81.0-99.0); MEAN PLATELET VOLUME 8.1 fl (7.4-10.4); MONOCYTES % 12.8 % (2.0-8.0); NEUTROPHILS % 63.5 % (40.0-76.0); PLATELET 254 x1000/uL (130-400); RED BLOOD CELL COUNT 4.24 mill/uL (4.2-5.4); RED CELL DISTRIBUTION WIDTH 18.5 % (11.6-14.6)
[2023-05-26] MEDS: INSULIN LISPRO 100 UNITS/ML SUBCUT SCH ×6 (07:00→17:00)
[2023-05-26 07:55] VITALS: BP 116/50; PULSE 90; RESP 18; TEMP 97.2
[2023-05-26] MEDS: FERROUS SULFATE 325MG TABLET PO SCH ×3 (08:33→18:25)
[2023-05-26] MEDS: DOCUSATE SODIUM 100MG CAPSULE PO SCH ×2 (08:33→18:25)
[2023-05-26] MEDS: ASPIRIN 81MG EC TABLET PO SCH (08:33)
[2023-05-26] MEDS: SENNOSIDES 8.6MG TABLET PO SCH (08:34)
[2023-05-26] MEDS: FLUCONAZOLE 100MG TABLET PO SCH (08:34)
[2023-05-26] MEDS: LINAGLIPTIN 5MG TABLET PO SCH (08:34)
[2023-05-26] MEDS: ASCORBIC ACID 500 MG TABLET PO SCH (08:34)
[2023-05-26] MEDS: LEVETIRACETAM 250MG TABLET PO SCH ×2 (08:35→21:37)
[2023-05-26] MEDS: PAROXETINE HCL 10MG TABLET PO SCH (08:35)
[2023-05-26] MEDS: ISOSORBIDE MONONITRATE 60MG TABLET SR 24HR PO SCH (08:36)
[2023-05-26] MEDS: AMLODIPINE 10MG TABLET PO SCH (08:36)
[2023-05-26] MEDS: CLOPIDOGREL 75MG TABLET PO SCH (08:38)
[2023-05-26] MEDS: METOPROLOL SUCCINATE 50MG ER TABLET PO SCH (08:38)
[2023-05-26] MEDS: INSULIN GLARGINE 100 UNITS/ML SUBCUT SCH ×2 (10:00→21:54)
[2023-05-26 20:30] VITALS: BP 140/62; PULSE 76; RESP 20; TEMP 97.8
[2023-05-26] MEDS: ATORVASTATIN CALCIUM 40MG TABLET PO SCH (21:37)
[2023-05-26 21:51] VITALS: RESP 28
[2023-05-27] MEDS: BLOOD SUGAR DIAGNOSTIC STRIP TEST SCH ×2 (06:33→11:15)
[2023-05-27] MEDS: INSULIN LISPRO 100 UNITS/ML SUBCUT SCH ×4 (06:41→12:59)
[2023-05-27] MEDS: LEVOTHYROXINE SODIUM 150MCG TABLET PO SCH (06:43)
[2023-05-27 08:00] VITALS: BP 151/86; PULSE 75; RESP 17; TEMP 97.5
[2023-05-27] MEDS ORDERED: LACTULOSE 20G/30ML UDC PO SCH (09:00)
[2023-05-27] MEDS: ISOSORBIDE MONONITRATE 60MG TABLET SR 24HR PO SCH (09:36)
[2023-05-27] MEDS: LEVETIRACETAM 250MG TABLET PO SCH (09:36)
[2023-05-27] MEDS: CLOPIDOGREL 75MG TABLET PO SCH (09:37)
[2023-05-27] MEDS: PAROXETINE HCL 10MG TABLET PO SCH (09:37)
[2023-05-27] MEDS: AMLODIPINE 10MG TABLET PO SCH (09:37)
[2023-05-27] MEDS: LINAGLIPTIN 5MG TABLET PO SCH (09:37)
[2023-05-27] MEDS: SENNOSIDES 8.6MG TABLET PO SCH (09:37)
[2023-05-27] MEDS: ASCORBIC ACID 500 MG TABLET PO SCH (09:38)
[2023-05-27] MEDS: ASPIRIN 81MG EC TABLET PO SCH (09:38)
[2023-05-27] MEDS: FLUCONAZOLE 100MG TABLET PO SCH (09:38)
[2023-05-27] MEDS: METOPROLOL SUCCINATE 50MG ER TABLET PO SCH (09:38)
[2023-05-27] MEDS: DOCUSATE SODIUM 100MG CAPSULE PO SCH (09:38)
[2023-05-27] MEDS: FERROUS SULFATE 325MG TABLET PO SCH ×2 (09:38→12:57)
[2023-05-27] MEDS: INSULIN GLARGINE 100 UNITS/ML SUBCUT SCH (09:52)
[2023-05-27] MEDS ORDERED: KEPP250 PO (10:47)
[2023-05-27] MEDS ORDERED: METO-385 PO (10:47)
[2023-05-27] MEDS ORDERED: LIP40 PO (10:47)
[2023-05-27] MEDS ORDERED: INSLIS SUBCUT (10:47)
[2023-05-27] MEDS ORDERED: ISOS60TA76 PO (10:47)
[2023-05-27] MEDS ORDERED: CLOP-31 PO (10:47)
[2023-05-27] MEDS ORDERED: SYN150 PO (10:47)
[2023-05-27] MEDS ORDERED: PARO10TA74 PO (10:47)
[2023-05-27] MEDS ORDERED: AMLO10TA80 PO (10:47)
[2023-05-27] MEDS ORDERED: LANTUSUD SUBCUT ×2 (10:47)
[2023-05-27] MEDS ORDERED: ASPI-1406 PO (10:47)
[2023-05-27 13:47] VITALS: BP 129/72; PULSE 79; TEMP 97.5; O2SAT 96
== END 2023-05-27 16:55 | disposition home health service (06) | DRG 64 ==
PROVIDERS: ADMIT Physical Medicine & Rehabilitation Spinal Cord Injury Medicine; ATTEND Internal Medicine Pulmonary Disease
PROC: 5A09557 Assistance with Respiratory Ventilation, Greater than 96 Consecutive Hours, Continuous Positive Airway Pressure (ICD-10-PCS; 2023-05-13)
PROC: 4A00X4Z Measurement of Central Nervous Electrical Activity, External Approach (ICD-10-PCS; principal; 2023-05-22)
DX: I63.9 Cerebral infarction, unspecified (principal); E43 Unspecified severe protein-calorie malnutrition; G92.8 Other toxic encephalopathy; G82.50 Quadriplegia, unspecified; J96.90 Respiratory failure, unspecified, unspecified whether with hypoxia or hypercapnia; N17.9 Acute kidney failure, unspecified; E87.1 Hypo-osmolality and hyponatremia; N39.0 Urinary tract infection, site not specified; E72.20 Disorder of urea cycle metabolism, unspecified; F01.53 Vascular dementia, unspecified severity, with mood disturbance; F01.54 Vascular dementia, unspecified severity, with anxiety; F33.1 Major depressive disorder, recurrent, moderate; D64.9 Anemia, unspecified; E11.65 Type 2 diabetes mellitus with hyperglycemia; E03.9 Hypothyroidism, unspecified; E66.9 Obesity, unspecified; E78.00 Pure hypercholesterolemia, unspecified; G47.33 Obstructive sleep apnea (adult) (pediatric); E11.22 Type 2 diabetes mellitus with diabetic chronic kidney disease; E55.9 Vitamin D deficiency, unspecified; E61.1 Iron deficiency; I07.1 Rheumatic tricuspid insufficiency; I12.9 Hypertensive chronic kidney disease with stage 1 through stage 4 chronic kidney disease, or unspecified chronic kidney disease; I25.10 Atherosclerotic heart disease of native coronary artery without angina pectoris; I27.20 Pulmonary hypertension, unspecified; M10.9 Gout, unspecified; N18.2 Chronic kidney disease, stage 2 (mild); R70.0 Elevated erythrocyte sedimentation rate; R26.89 Other abnormalities of gait and mobility; I69.320 Aphasia following cerebral infarction; I69.322 Dysarthria following cerebral infarction; I69.391 Dysphagia following cerebral infarction; Z95.5 Presence of coronary angioplasty implant and graft; Z95.1 Presence of aortocoronary bypass graft; Z91.81 History of falling; Z88.0 Allergy status to penicillin; Z87.440 Personal history of urinary (tract) infections; Z83.3 Family history of diabetes mellitus; Z82.49 Family history of ischemic heart disease and other diseases of the circulatory system; Z79.899 Other long term (current) drug therapy; Z79.82 Long term (current) use of aspirin; Z79.4 Long term (current) use of insulin; Z79.02 Long term (current) use of antithrombotics/antiplatelets; Z68.28 Body mass index [BMI] 28.0-28.9, adult
CPT/HCPCS: 36415; 36600; 70551; 71045; 76700; 80048; 80053; 80061; 80076; 81003; 82140; 82306; 82375; 82607; 82728; 82746; 82805; 82962; 83036; 83540; 83550; 84134; 84439; 84443; 84481; 85025; 87106; 92523; 92610; 93005; 93306; 93880; 93970; 94660; 97110; 97116; 97150; 97162; 97166; 97530; 97535; 97542; 99285; A6261; J1644; J1815; A5200